=== PATIENT | female | born 1940 ===

== ENCOUNTER 2017-05-26 06:45 | Day surgery (SDC) | payer MEDICARE ==
[2017-05-19 14:00] VITALS: BMI 20.7
[2017-05-26] MEDS ORDERED: Propofol 10 mg/ml Inj (20 ML) ONE (07:43)
[2017-05-26] MEDS ORDERED: Lidocaine 2% Inj (20ml) ONE (07:43)
[2017-05-26] MEDS ORDERED: Sodium Chloride 0.9% 1,000 ML IV SCH (08:45)
[2017-05-26 09:02] VITALS: O2SAT 99
[2017-05-26 09:18] VITALS: BP 117/65; PULSE 64; RESP 16; TEMP 97.9
== END 2017-05-26 10:01 | disposition home or self-care (01) ==
LOC: ENDO 06:45
PROVIDERS: ATTEND Internal Medicine Gastroenterology
DX: Z12.11 Encounter for screening for malignant neoplasm of colon (principal); K50.10 Crohn's disease of large intestine without complications; K64.1 Second degree hemorrhoids; I10 Essential (primary) hypertension; E78.5 Hyperlipidemia, unspecified
CPT/HCPCS: 45380; 88305; J2704; J7040 ×2